=== PATIENT | female | born 2005 | race Two or more races ===

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

== ENCOUNTER 2023-05-19 15:53 | Emergency (ER) | payer OTHER ==
[~2023-05-19] VITALS: Ht 160 cm; Wt 52.6 kg
[2023-05-19] MEDS ORDERED: LUTERA-28 TABL1 EACH (16:35)
== END 2023-05-19 20:13 | disposition home or self-care (01) ==
LOC: ER 15:53 → EMR PED 16:21 → ER 16:21 → EMR PED 20:13
PROVIDERS: Emergency Medicine
DX: R53.81 Other malaise (principal); R42 Dizziness and giddiness

== ENCOUNTER 2023-05-20 08:09 | Outpatient (CLI) | payer OTHER ==
[~2023-05-20 08:09] MED LIST: LUTERA-28 TABL1 EACH
== END 2023-05-20 08:12 | disposition home or self-care (01) ==
LOC: LAB 08:09
DX: R42 Dizziness and giddiness (principal)